=== PATIENT | female | born 1985 | race Hispanic/Latino ===

== ENCOUNTER 2024-04-14 10:03 | Outpatient (CLI) | payer OTHER, SELFPAY | END 2024-04-14 10:04 | disposition home or self-care (01) | LOC: ULT 10:03 | PROVIDERS: ATTEND Family Medicine | DX: R74.8 Abnormal levels of other serum enzymes (principal); R17 Unspecified jaundice; K82.8 Other specified diseases of gallbladder | CPT/HCPCS: 76700 ==